=== PATIENT | male | born 2000 ===

== ENCOUNTER 2018-10-14 01:03 | Emergency (ER) | payer MEDICAID, OTHER ==
--- NOTE | 2018-10-14 03:18 | ED PDOC ---
HPI: General Adult Time Seen by Provider: 10/14/18 02:51 Chief Complaint (Nursing): Lower Extremity Problem/Injury Chief Complaint (Provider): tired History Per: Patient Additional Complaint(s): 18 y/o male brought in by EMS for evaluation. Patient is nondomiciled, states he is tired and his feet work from doing a lot of walking. Patient denies acute physical or psychiatric complaints. Requesting to sleep for a little. Past Medical History Reviewed: Historical Data, Nursing Documentation, Vital Signs Vital Signs: Last Vital Signs Temp 98.0 F 10/14/18 01:10 Pulse 80 10/14/18 01:10 Resp 18 10/14/18 01:10 BP 130/82 10/14/18 01:10 Pulse Ox 95 10/14/18 01:10 - Medical History PMH: No Chronic Diseases - Surgical History Surgical History: No Surg Hx - Family History Family History: States: No Known Family Hx - Home Medications Home Medications: Ambulatory Orders Medication Instructions Recorded No Known Home Med 10/14/18 - Allergies Allergies/Adverse Reactions: Allergies Allergy/AdvReac Type Severity Reaction Status Date / Time No Known Allergies Allergy Verified 10/14/18 08:27 Review of Systems ROS Statement: Except As Marked, All Systems Reviewed And Found Negative Physical Exam - Reviewed Nursing Documentation Reviewed: Yes Vital Signs Reviewed: Yes - Physical Exam Appears: Positive for: Well, Non-toxic, No Acute Distress Head Exam: Positive for: ATRAUMATIC, NORMAL INSPECTION, NORMOCEPHALIC Skin: Positive for: Normal Color Eye Exam: Positive for: Normal appearance ENT: Positive for: Normal ENT Inspection Cardiovascular/Chest: Positive for: Regular Rate, Rhythm Respiratory: Positive for: Normal Breath Sounds Gastrointestinal/Abdominal: Positive for: Normal Exam Back: Positive for: Normal Inspection Extremity: Positive for: Normal ROM Neurologic/Psych: Positive for: Alert, Oriented (x3) - ECG O2 Sat by Pulse Oximetry: 95 - Progress ED Course And Treament: Patient requires no further intervention in the ED and is stable for discharge at this time Disposition - Clinical Impression Clinical Impression: Malingering - Patient ED Disposition Is Patient to be Admitted: No - Disposition Disposition: Routine/Home Disposition Time: 03:21 Condition: IMPROVED
[2018-10-14 06:50] VITALS: BP 141/63; PULSE 63; RESP 16; TEMP 98
[2018-10-14 21:19] VITALS: O2SAT 95
== END 2018-10-14 05:45 | disposition home or self-care (01) ==
LOC: H.ER 01:03
DX: Z76.5 Malingerer [conscious simulation] (principal)

== ENCOUNTER 2018-10-31 15:22 | Emergency (ER) | payer MEDICAID, OTHER ==
[2018-10-31 15:30] VITALS: BP 132/71; PULSE 88; RESP 20; TEMP 98.5; O2SAT 100
--- NOTE | 2018-10-31 15:56 | ED PDOC ---
HPI: Wound Care - HPI Time Seen by Provider: 10/31/18 15:28 Chief Complaint (Nursing): Suture/Staple Removal Chief Complaint (Provider): Suture/Staple Removal History Per: Patient Exam Limitations: no limitations Onset/Duration Of Symptoms: Days (x7) Current Symptoms Are (Timing): Still Present Quality Of Symptoms: Painful Additional Complaint(s): 18 year old male arrives to ED via EMS for suture removal of the right hand placed on 10/24/18 at [facility]. Patient states he missed his appointment to remove sutures this morning but informed that he may go to any hospital for removal, thus, prompting ED visit. He reports the laceration was sustained after breaking a window with his fist 1 week ago. Otherwise, he denies any fever, chills, or recent ABX use. Tetanus vaccine is UTD. PCP: none provided Past Medical History Reviewed: Historical Data, Nursing Documentation, Vital Signs Vital Signs: Last Vital Signs Temp 98.5 F 10/31/18 15:27 Pulse 88 10/31/18 15:27 Resp 20 10/31/18 15:27 BP 132/71 10/31/18 15:27 Pulse Ox 100 10/31/18 15:27 - Medical History PMH: No Chronic Diseases Denies: Diabetes, Hepatitis, HIV, HTN, Chronic Kidney Disease, Seizures, Sexually Transmitted Disease - Family History Family History: States: Unknown Family Hx - Immunization History Hx Tetanus Toxoid Vaccination: No Hx Influenza Vaccination: No Hx Pneumococcal Vaccination: No - Home Medications Home Medications: Ambulatory Orders Medication Instructions Recorded Cephalexin [cephalexin] 500 mg PO Q6 #28 cap 11/01/18 - Allergies Allergies/Adverse Reactions: Allergies Allergy/AdvReac Type Severity Reaction Status Date / Time No Known Allergies Allergy Verified 10/31/18 20:52 Review of Systems ROS Statement: Except As Marked, All Systems Reviewed And Found Negative Constitutional: Negative for: Fever, Chills Musculoskeletal: Positive for: Hand Pain (right-sided with stitches in place). Negative for: Other (discharge or bleeding of wound) Physical Exam - Reviewed Nursing Documentation Reviewed: Yes Vital Signs Reviewed: Yes - Physical Exam Appears: Positive for: Well, Non-toxic, No Acute Distress Head Exam: Positive for: ATRAUMATIC, NORMAL INSPECTION, NORMOCEPHALIC Skin: Positive for: Warm, Dry Eye Exam: Positive for: Normal appearance, EOMI, PERRL Cardiovascular/Chest: Positive for: Regular Rate, Rhythm Respiratory: Positive for: Normal Breath Sounds Pulses-Radial (L): 2+ Pulses-Radial (R): 2+ Extremity: Positive for: Normal ROM, Tenderness (right thenar eminence), Capillary Refill (<2s), Swelling (right thenar eminence), Other (3cm laceration to right thenar eminence, 6 sutures intact. Mild gaping noted with scabbing between sutures. Surrounding erythema and warmth suggestive of cellutlitis. No drainage, no fluctuance, no streaking.). Negative for: Deformity Neurologic/Psych: Positive for: Alert, Oriented, Gait (steady without assistance) - ECG O2 Sat by Pulse Oximetry: 100 (RA) Pulse Ox Interpretation: Normal Medical Decision Making Medical Decision Making: Time: 1534 Initial Plan: * Motrin 600mg PO * XR hand (right) Time: 161 --Patient refuses further treatment at this time and requests to leave against medical advice as he wishes to return to homeless [facility] by 1700 tonight. Denying any further intervention, including suture removal, XR, or antibiotics. The provider has personally explained to the patient that choosing to do so may result in permanent bodily harm, wound infection, or . The provider discussed at great length that without further evaluation and monitoring there may be unforeseen circumstances and/or deterioration causing permanent bodily harm or as a result of their choice. The patient verbalized these risks b ack to the physician in laymans terms. The patient is alert, oriented, and shows the mental capacity to make clear decisions regarding the his health care at this time. The patient continues to wish to leave against medical advice. In light of the patients decision to leave AMA, follow-up has been arranged and the patient is aware of the importance of following up as instructed. The patient has been advised that they should return to the ED immediately if they change their mind at any time, or if their condition begins to change or worsen in any way. Scribe Attestation: Documented by Julissa Fletcher, acting as a scribe for Amber Prescott PA-C. Provider Scribe Attestation: All medical record entries made by the Scribe were at my direction and personally dictated by me. I have reviewed the chart and agree that the record accurately reflects my personal performance of the history, physical exam, medical decision making, and the department course for this patient. I have also personally directed, reviewed, and agree with the discharge instructions and disposition. Disposition - Clinical Impression Clinical Impression: Left against medical advice - Disposition Referrals: Duke Hill MD [Medical Doctor] - Disposition: Against Medical Advice Disposition Time: 16:15 Condition: FAIR Additional Instructions: Keep wound clean, dry, covered Return to ER for any new/worsening symptoms or if you wish to be re-evaluated Instructions: Wound Care (DC), Leaving Against Medical Advice Forms: [employer] (Yakut), [facility] School/Work Excuse
== END 2018-10-31 16:35 | disposition left against medical advice (07) ==
LOC: H.ER 15:22
DX: Z48.02 Encounter for removal of sutures (principal)

== ENCOUNTER 2018-10-31 20:45 | Emergency (ER) | payer MEDICAID, OTHER ==
[2018-10-31 20:56] VITALS: TEMP 98.1
[2018-10-31 22:18] VITALS: BP 103/68; PULSE 80; RESP 18; O2SAT 98
--- NOTE | 2018-11-01 00:03 | ED PDOC ---
HPI: General Adult Time Seen by Provider: 10/31/18 21:08 Chief Complaint (Nursing): GI Problem History Per: Patient Additional Complaint(s): Pt. states earlier today he got into a verbal altercation with [facility] people at the [facility]. States this triggered a panic attack causing him to feel nauseous but had no vomiting. Pt. states he does have a hx of anxiety. Also states 7 days ago he had sutures placed on his R hand. Denies SI/HI, hallucinations, abdominal pain, vomiting, chest pain, SOB, fever, discharge. Past Medical History Reviewed: Historical Data, Nursing Documentation, Vital Signs Vital Signs: Last Vital Signs Temp 98.1 F 10/31/18 20:52 Pulse 80 10/31/18 22:18 Resp 18 10/31/18 22:18 BP 103/68 10/31/18 22:18 Pulse Ox 98 10/31/18 22:18 - Medical History PMH: Anxiety Denies: Diabetes, Hepatitis, HIV, HTN, Chronic Kidney Disease, Seizures, Sexually Transmitted Disease - Surgical History Surgical History: No Surg Hx - Family History Family History: States: No Known Family Hx - Immunization History Hx Tetanus Toxoid Vaccination: No Hx Influenza Vaccination: No Hx Pneumococcal Vaccination: No - Home Medications Home Medications: Ambulatory Orders Medication Instructions Recorded Cephalexin [cephalexin] 500 mg PO Q6 #28 cap 11/01/18 - Allergies Allergies/Adverse Reactions: Allergies Allergy/AdvReac Type Severity Reaction Status Date / Time No Known Allergies Allergy Verified 10/31/18 20:52 Review of Systems ROS Statement: Except As Marked, All Systems Reviewed And Found Negative Physical Exam - Reviewed Nursing Documentation Reviewed: Yes Vital Signs Reviewed: Yes - Physical Exam Appears: Positive for: Well, Non-toxic, No Acute Distress Head Exam: Positive for: ATRAUMATIC, NORMAL INSPECTION, NORMOCEPHALIC Skin: Positive for: Normal Color, Warm. Negative for: Rash Eye Exam: Positive for: EOMI, Normal appearance, PERRL ENT: Positive for: Normal ENT Inspection Neck: Positive for: Normal, Painless ROM Cardiovascular/Chest: Positive for: Regular Rate, Rhythm Respiratory: Positive for: CNT, Normal Breath Sounds Pulses-Radial (L): 2+ Pulses-Radial (R): 2+ Gastrointestinal/Abdominal: Positive for: Normal Exam, Soft. Negative for: Tenderness Back: Positive for: Normal Inspection Extremity: Positive for: Normal ROM, Other (R thenar eminence with sutures in place with some dehisence and surrounding erythema but no swelling, fluctuance, or discharge) Neurologic/Psych: Positive for: Alert, Oriented (x3), Mood/Affect (angry but cooperative), Gait (steady, unassisted) - ECG O2 Sat by Pulse Oximetry: 98 - Progress ED Course And Treament: Keflex 500mg PO ordered. Pt. evaluated by Mihir MCKEON who spoke with Erika BUTTER PRODUCTION SUPERVISOR (under Dr. Roman) and cleared pt. for discharge. Advised to return to ED or go to PMD in 2-3 days for wound check. Disposition - Clinical Impression Clinical Impression: Cellulitis, Adjustment disorder - Patient ED Disposition Is Patient to be Admitted: No - Disposition Referrals: [facility] [Outside] Disposition: Routine/Home Disposition Time: 00:04 Condition: STABLE Additional Instructions: GUY BOWMAN, thank you for letting us take care of you today. Your provider was Lizeth Brasher MD and you were treated for VOMITING. The emergency medical care you received today was directed at your acute symptoms. If you were prescribed any medication, please fill it and take as directed. It may take several days for your symptoms to resolve. Return to the Emergency Department if your symptoms worsen, do not improve, or if you have any other problems. Please contact your doctor or call one of the physicians/clinics you have been referred to that are listed on the Patient Visit Information form that is included in your discharge packet. Bring any paperwork you were given at discharge with you along with any medications you are taking to your follow up visit. Our treatment cannot replace ongoing medical care by a primary care provider outside of the emergency department. Thank you for allowing the [facility] team to be part of your care today. If you had an X-Ray or CT scan: A Radiologist will review the ED reading if any change in treatment is needed we will contact you. If you had a blood, urine, or wound culture: It will take several days for the results, if any change in treatment is needed we will contact you. If you had an STI test: It will take 48 hours for the results. Please call after 1 week if you have not heard back. Prescriptions: Cephalexin [cephalexin] 500 mg PO Q6 #28 cap Instructions: Adjustment Disorder, Cellulitis (Skin Infection), Adult (DC) Forms: [facility] (Kazakh) Print Language: TAJIK
== END 2018-11-01 00:32 | disposition home or self-care (01) ==
LOC: H.ER 20:45
DX: F43.20 Adjustment disorder, unspecified (principal); F41.0 Panic disorder [episodic paroxysmal anxiety]; L03.90 Cellulitis, unspecified

== ENCOUNTER 2018-11-01 07:03 | Emergency (ER) | payer MEDICAID, OTHER ==
[2018-11-01 07:16] VITALS: O2SAT 98; BMI 35.9
--- NOTE | 2018-11-01 09:09 | ED PDOC ---
HPI: Psych/Substance Abuse Time Seen by Provider: 11/01/18 07:25 Chief Complaint (Nursing): Psychiatric Evaluation Chief Complaint (Provider): Psychiatric Evaluation History Per: Patient History/Exam Limitations: no limitations Onset/Duration Of Symptoms: Hrs Current Symptoms Are (Timing): Still Present Suicide/Self Injury Attempted (Context): None Modifying Factor(s): None Associated Symptoms: Anxiety Involuntary Hold By: None Additional Complaint(s): 18 y/o homeless male with a PMHx of Anxiety brought in by EMS for psychiatric evaluation. Patient states he does not know why he's here but further states [facility]. Patient is unwilling to say why he feels unsafe. Patient additionally reports of feeling depressed. However, patient denies any suicidal or homicidal ideation. Patient states he should be taking anxiety medications but is unable to because he does not have insurance. Of note, patient has sutures to the right hand. Patient is reluctant to share more information. However, patient reports he will be getting the sutures removed on Saturday. In addition, patient was seen and evaluated in this ER last night for similar symptoms. Patient was medically and psychiatrically cleared and discharged home at 12 AM last night. No drugs or etoh. PMD: none Past Medical History Reviewed: Historical Data, Nursing Documentation, Vital Signs Vital Signs: Last Vital Signs Temp 97 F L 11/01/18 07:15 Pulse 77 11/01/18 07:15 Resp 20 11/01/18 07:21 BP 143/75 11/01/18 07:15 Pulse Ox 98 11/01/18 07:15 - Medical History PMH: Anxiety, Depression Denies: Diabetes, Hepatitis, HIV, HTN, Chronic Kidney Disease, Seizures, Sexually Transmitted Disease - Surgical History Surgical History: No Surg Hx - Family History Family History: States: Unknown Family Hx - Living Arrangements Living Arrangements: Other (Homeless Halfway) - Immunization History Hx Tetanus Toxoid Vaccination: No Hx Influenza Vaccination: No Hx Pneumococcal Vaccination: No - Home Medications Home Medications: Ambulatory Orders Medication Instructions Recorded Cephalexin [cephalexin] 500 mg PO Q6 #28 cap 11/01/18 - Allergies Allergies/Adverse Reactions: Allergies Allergy/AdvReac Type Severity Reaction Status Date / Time No Known Allergies Allergy Verified 11/01/18 07:18 Review of Systems ROS Statement: Except As Marked, All Systems Reviewed And Found Negative Psych: Positive for: Depression, Other (Psychiatric evaluation). Negative for: Suicidal ideation (or homicidal ideation) Physical Exam - Reviewed Nursing Documentation Reviewed: Yes Vital Signs Reviewed: Yes - Physical Exam Appears: Positive for: No Acute Distress Head Exam: Positive for: ATRAUMATIC, NORMOCEPHALIC Skin: Positive for: Normal Color, Warm, Dry Eye Exam: Positive for: Normal appearance, EOMI, PERRL Neck: Positive for: Normal Cardiovascular/Chest: Positive for: Regular Rate, Rhythm. Negative for: Murmur Respiratory: Positive for: Normal Breath Sounds. Negative for: Respiratory Distress Gastrointestinal/Abdominal: Positive for: Normal Exam, Soft. Negative for: Tenderness Back: Positive for: Normal Inspection. Negative for: L CVA Tenderness, R CVA Tenderness Extremity: Positive for: Normal ROM, Other (Right hand laceration sutured noted on the right thenar eminence) Neurologic/Psych: Positive for: Alert, Oriented. Negative for: Motor/Sensory Deficits - ECG O2 Sat by Pulse Oximetry: 98 (RA) Pulse Ox Interpretation: Normal Medical Decision Making Medical Decision Making: Scribe Attestation: Documented by Ila Edwards, acting as a scribe for Deven Armstrong MD. Provider Scribe Attestation: All medical record entries made by the Scribe were at my direction and personally dictated by me. I have reviewed the chart and agree that the record accurately reflects my personal performance of the history, physical exam, medical decision making, and the department course for this patient. I have also personally directed, reviewed, and agree with the discharge instructions and disposition. 832: Stable. Has no pain or suicidal/homicidal ideation. Is calling a friend and leaving ER with him. Ambulated with no issues. AAOx3. Tolerated po. Disposition - Clinical Impression Clinical Impression: Homelessness - Patient ED Disposition Is Patient to be Admitted: No - Disposition Referrals: [facility] [Outside] - 11/03/18 Disposition Time: 07:45 Condition: STABLE Additional Instructions: Return if not better in 3 days. Instructions: Tips for Getting Better Sleep
[2018-11-01 09:38] VITALS: BP 137/74; PULSE 73; RESP 19; TEMP 98.3
== END 2018-11-01 09:30 | disposition home or self-care (01) ==
LOC: H.ER 07:03
DX: Z59.0 Homelessness (principal); Z86.59 Personal history of other mental and behavioral disorders

== ENCOUNTER 2018-11-02 11:27 | Emergency (ER) | payer OTHER ==
[2018-11-02 11:27] VITALS: BMI 35.9
--- NOTE | 2018-11-02 12:09 | ED PDOC ---
HPI: Psych/Substance Abuse Time Seen by Provider: 11/02/18 12:06 Chief Complaint (Nursing): Psychiatric Evaluation Chief Complaint (Provider): Psychiatric Screening History Per: Patient History/Exam Limitations: no limitations Onset/Duration Of Symptoms: Days (>365) Current Symptoms Are (Timing): Still Present Suicide/Self Injury Attempted (Context): None Modifying Factor(s): None Severity: Mild Associated Symptoms: Anxiety, Depression. denies: Suicidal Thoughts, Suicidal Plan Involuntary Hold By: None (Pt presents to the ED for the second time in two days seeking housing referral services; the patient was seen less than 24 hours ago and given a list of housing referral services and returns today claiming subjective depression and need for housing) Past Medical History Vital Signs: Last Vital Signs Temp 97 F L 11/02/18 11:32 Pulse 81 11/02/18 11:32 Resp BP 117/61 11/02/18 11:32 Pulse Ox 98 11/02/18 11:32 - Medical History PMH: Anxiety, Depression Denies: Diabetes, Hepatitis, HIV, HTN, Chronic Kidney Disease, Seizures, Sexually Transmitted Disease - Family History Family History: States: Unknown Family Hx - Immunization History Hx Tetanus Toxoid Vaccination: No Hx Influenza Vaccination: No Hx Pneumococcal Vaccination: No - Home Medications Home Medications: Ambulatory Orders Medication Instructions Recorded RX: No Known Home Med 11/01/18 - Allergies Allergies/Adverse Reactions: Allergies Allergy/AdvReac Type Severity Reaction Status Date / Time No Known Allergies Allergy Verified 11/01/18 07:18 Review of Systems ROS Statement: Except As Marked, All Systems Reviewed And Found Negative Psych: Positive for: Anxiety, Depression Physical Exam - Reviewed Nursing Documentation Reviewed: Yes Vital Signs Reviewed: Yes - Physical Exam Appears: Positive for: Well, Non-toxic Head Exam: Positive for: ATRAUMATIC, NORMAL INSPECTION, NORMOCEPHALIC Skin: Positive for: Normal Color, Warm, Dry Eye Exam: Positive for: Normal appearance, EOMI, PERRL ENT: Positive for: Normal ENT Inspection Neck: Positive for: Normal, Painless ROM, Supple. Negative for: Decreased ROM Cardiovascular/Chest: Positive for: Regular Rate, Rhythm, Chest Non Tender. Negative for: Edema, Gallop, Murmur, Bradycardia, Tachycardia Respiratory: Positive for: Normal Breath Sounds. Negative for: Decreased Breath Sounds, Accessory Muscle Use, Crackles, Rales, Rhonchi, Stridor, Wheezing Pulses-Carotid (L): 2+ Pulses-Carotid (R): 2+ Pulses-Radial (L): 2+ Pulses-Radial (R): 2+ - ECG O2 Sat by Pulse Oximetry: 98 Medical Decision Making Medical Decision Making: Referred to crisis and discharged with similar instructions for follow up given yesterday; Dr Kaplan Adjustment Disorder Disposition - Clinical Impression Clinical Impression: Adjustment disorder - Patient ED Disposition Is Patient to be Admitted: No Discussed With Dr.: Anabel Elder Doctor Will See Patient In The: Office Counseled Patient/Family Regarding: Studies Performed, Diagnosis, Need For Followup - Disposition Disposition: Routine/Home Disposition Time: 16:00 Condition: STABLE Additional Instructions: follow up as indicated yesterday Forms: [employer] (Turkmen)
[2018-11-02 13:41] VITALS: BP 121/73; PULSE 79; RESP 16; TEMP 97.2
[2018-11-02 17:31] VITALS: O2SAT 98
== END 2018-11-02 13:41 | disposition home or self-care (01) ==
LOC: H.ER 11:27
DX: F43.22 Adjustment disorder with anxiety (principal)

== ENCOUNTER 2018-11-08 20:45 | Emergency (ER) | payer OTHER ==
[2018-11-08 20:58] VITALS: O2SAT 97
--- NOTE | 2018-11-08 22:35 | ED PDOC ---
HPI: Chest Pain Time Seen by Provider: 11/08/18 21:15 Chief Complaint (Nursing): Abdominal Pain Chief Complaint (Provider): Chest Pain History Per: Patient History/Exam Limitations: no limitations Current Symptoms Are (Timing): Still Present Quality: "Pain" Associated Symptoms: denies: Diaphoresis Additional Complaint(s): 18 year old undomiciled male with a history of autism and ADHD presents to the ED with non radiating chest pain located in the center of chest. Patient reports also feeling depressed lately. He ran out of his medications and since he has no Medicare at this time is unable to see a doctor or get refills. Patient typically lives in longterm but there are no beds available tonight. Denies sweats, nausea and vomiting. Offers no other medical complaints. PMD: none provided Past Medical History Reviewed: Historical Data, Nursing Documentation, Vital Signs Vital Signs: Last Vital Signs Temp 97.6 F 11/08/18 20:56 Pulse 104 H 11/08/18 20:56 Resp 20 11/08/18 20:56 BP 123/74 11/08/18 20:56 Pulse Ox 97 11/08/18 20:56 - Medical History PMH: Anxiety, Depression - Surgical History Surgical History: No Surg Hx - Family History Family History: States: Unknown Family Hx - Allergies Allergies/Adverse Reactions: Allergies Allergy/AdvReac Type Severity Reaction Status Date / Time No Known Allergies Allergy Verified 11/08/18 20:58 Review of Systems ROS Statement: Except As Marked, All Systems Reviewed And Found Negative Cardiovascular: Positive for: Chest Pain Psych: Positive for: Depression Physical Exam - Reviewed Nursing Documentation Reviewed: Yes Vital Signs Reviewed: Yes - Physical Exam Appears: Positive for: No Acute Distress (malodorous and disheveled) Head Exam: Positive for: ATRAUMATIC, NORMAL INSPECTION, NORMOCEPHALIC Skin: Positive for: Normal Color, Warm, Dry Eye Exam: Positive for: EOMI, Normal appearance, PERRL Neck: Positive for: Normal, Painless ROM, Supple Cardiovascular/Chest: Positive for: Regular Rate, Rhythm, Chest Non Tender. Negative for: Murmur Respiratory: Positive for: Normal Breath Sounds. Negative for: Respiratory Distress Gastrointestinal/Abdominal: Positive for: Normal Exam, Soft. Negative for: Tenderness Extremity: Positive for: Normal ROM. Negative for: Deformity Neurologic/Psych: Positive for: Alert, Oriented. Negative for: Motor/Sensory Deficits - Laboratory Results Result Diagrams: 11/08/18 22:42 11/08/18 22:42 - ECG O2 Sat by Pulse Oximetry: 97 (RA) Pulse Ox Interpretation: Normal Medical Decision Making Medical Decision Makin:50 MDM: workup for chest pain; low suspicion for cardiac etiology Crisis evaluation Reassess Most likely discharge home. 2345 Pt with normal labs and workup. Vitals WNL and EKG NSR. HEART score 0. Crisis team evaluated the patient and determined there was no need for admission per Dr. Roman with a diagnosis of Adjustment Disorder/Depression. Pt given referral information for outpatient follow up and psychiatric services. Scribe Attestation: Documented by Marleny Richardson acting as a scribe for Chandni Orellana MD Provider Scribe Attestation: All medical record entries made by the Scribe were at my direction and personally dictated by me. I have reviewed the chart and agree that the record accurately reflects my personal performance of the history, physical exam, medical decision making, and the department course for this patient. I have also personally directed, reviewed, and agree with the discharge instructions and disposition. Disposition - Clinical Impression Clinical Impression: Chest pain - Patient ED Disposition Is Patient to be Admitted: No - Disposition Referrals: [facility] [Outside] Disposition: Routine/Home Disposition Time: 23:55 Condition: STABLE Forms: [employer] (Cook Islander) Print Language: WELSH
[2018-11-08 22:48] LABS: BASO # 0.1 K/uL (0.0-0.2); EOS # 0.1 K/uL (0.0-0.7); HEMOGLOBIN 14.4 g/dL (12.0-18.0); LYMPH % 18.1 % (20.0-40.0); MEAN CELL VOLUME 84.9 fl (80.0-94.0); MEAN CORPUSCULAR HEMOGLOBIN 28.9 pg (27.0-31.0); MEAN PLATELET VOLUME 7.6 fl (7.2-11.7); MONO % 9.2 % (0.0-10.0); NEUT # 7.8 K/uL (1.8-7.0); NEUT % 70.7 % (50.0-75.0); NRBC % 0.1 % (0.0-0.0); RBC 4.97 Mil/uL (4.40-5.90); RED CELL DISTRIBUTION WIDTH 13.7 % (11.5-14.5)
[2018-11-08 22:58] LABS: BLOOD UREA NITROGEN 15 mg/dl (9-20); CALCIUM 9.3 mg/dL (8.4-10.2); GFR NON-AFRICAN AMERICAN > 60
[2018-11-09 02:01] VITALS: BP 104/61; PULSE 75; RESP 18; TEMP 98.6
--- NOTE | 2018-11-09 09:45 | RAD ---
Date of service: 11/08/2018 HISTORY: possible admission COMPARISON: No prior. FINDINGS: LUNGS: No active pulmonary disease. PLEURA: No significant pleural effusion identified, no pneumothorax apparent. CARDIOVASCULAR: No aortic atherosclerotic calcification present. Normal cardiac size. No pulmonary vascular congestion. OSSEOUS STRUCTURES: No significant abnormalities. VISUALIZED UPPER ABDOMEN: Normal. OTHER FINDINGS: None. IMPRESSION: No active disease.
== END 2018-11-09 00:10 | disposition home or self-care (01) ==
LOC: H.ER 20:45 → MERGE 20:45 → EDBD 20:45 → H.ER 11-09 00:10
DX: F32.9 Major depressive disorder, single episode, unspecified (principal); R07.9 Chest pain, unspecified; Z86.59 Personal history of other mental and behavioral disorders

== ENCOUNTER 2018-11-14 19:07 | Emergency (ER) | payer MEDICAID, OTHER ==
[2018-11-14 19:07] VITALS: BMI 35.9
[2018-11-14 19:12] VITALS: BP 115/61; PULSE 88; RESP 16; TEMP 98; O2SAT 98
--- NOTE | 2018-11-14 19:47 | ED PDOC ---
HPI: Abdomen Time Seen by Provider: 11/14/18 19:17 Chief Complaint (Nursing): Abdominal Pain History Per: Patient Onset/Duration Of Symptoms: Mins (30) Severity: Moderate Location Of Pain/Discomfort: RLQ, LLQ Quality Of Discomfort: Unable To Describe Associated Symptoms: denies: Fever, Nausea, Vomiting, Diarrhea, Urinary Symptoms Exacerbating Factors: None Alleviating Factors: None Additional Complaint(s): Lower abd pain x 30 min [employer] [facility]. Denies NVD. Denies urinary sxs. Unable to localize area of pain, poor historian. Past Medical History Vital Signs: Last Vital Signs Temp 98 F 11/14/18 19:09 Pulse 88 11/14/18 19:09 Resp 16 11/14/18 19:09 BP 115/61 11/14/18 19:09 Pulse Ox 98 11/14/18 19:09 - Medical History PMH: Anxiety, Depression Denies: HIV, HTN, Chronic Kidney Disease, Seizures, Sexually Transmitted Disease - Family History Family History: States: Unknown Family Hx - Immunization History Hx Tetanus Toxoid Vaccination: No Hx Influenza Vaccination: No Hx Pneumococcal Vaccination: No - Home Medications Home Medications: Ambulatory Orders Medication Instructions Recorded No Known Home Med 11/01/18 - Allergies Allergies/Adverse Reactions: Allergies Allergy/AdvReac Type Severity Reaction Status Date / Time No Known Allergies Allergy Verified 11/14/18 19:09 Review of Systems ROS Statement: Except As Marked, All Systems Reviewed And Found Negative Gastrointestinal: Positive for: Abdominal Pain Physical Exam - Reviewed Nursing Documentation Reviewed: Yes Vital Signs Reviewed: Yes - Physical Exam Appears: Positive for: Non-toxic, No Acute Distress Head Exam: Positive for: ATRAUMATIC, NORMAL INSPECTION, NORMOCEPHALIC Skin: Positive for: Normal Color, Warm, DRY Eye Exam: Positive for: EOMI, Normal appearance, PERRL ENT: Positive for: Normal ENT Inspection Neck: Positive for: Normal, Painless ROM Cardiovascular/Chest: Positive for: Regular Rate, Rhythm Respiratory: Positive for: CNT, Normal Breath Sounds Gastrointestinal/Abdominal: Positive for: Soft, Tenderness (Lower quads bilat) Back: Positive for: Normal Inspection. Negative for: L CVA Tenderness, R CVA Tenderness Extremity: Positive for: Normal ROM Neurologic/Psych: Positive for: Alert. Negative for: Motor/Sensory Deficits - Laboratory Results Result Diagrams: 12/14/18 20:14 11/14/18 20:14 - ECG O2 Sat by Pulse Oximetry: 98 Medical Decision Making Medical Decision Making: Time: 1943 Plan: -- CT Abd/Pelvis IV Contrast -- Alcohol Serum -- CMP -- Urine Drug Screen -- ED Urine Drug Screen -- CBC with Differentials CT ABD/PELVIS RESULTS FINDINGS: LUNG BASES: The lung bases appear clear. No pleural effusions are seen. LIVER: Unremarkable. GALLBLADDER AND BILE DUCTS: The gallbladder appears within normal limits. No radioopaque gallstones are seen. No biliary ductal dilatation is evident. PANCREAS: Unremarkable. SPLEEN: Unremarkable. ADRENAL GLANDS: Unremarkable. KIDNEYS, URETERS, AND BLADDER: The kidneys appear within normal limits. There is no hydronephrosis or hydro ureter. No urinary calculi are seen. STOMACH AND BOWEL: Unremarkable appearance of the stomach and bowel. No evidence of bowel obstruction. No evidence suggesting enteritis or colitis. APPENDIX: Intestinal pattern is nonobstructive. The appendix is not visualized with certainty. There are no right lower quadrant inflammatory changes. No evidence of acute diverticulitis. PERITONEUM: No free fluid. No free air. LYMPH NODES: No lymphadenopathy is evident. VASCULATURE: No evidence of abdominal aortic aneurysm. BONES: No aggressive appearing osseous lesion. No acute osseous pathology evident. IMPRESSION: Intestinal pattern is nonobstructive. The appendix is not visualized with certainty. There are no right lower quadrant inflammatory changes. No evidence of acute diverticulitis. Scribe Attestation: Documented by Ila Edwards, acting as a scribe for Los Yu MD. Provider Scribe Attestation: All medical record entries made by the Scribe were at my direction and personally dictated by me. I have reviewed the chart and agree that the record accurately reflects my personal performance of the medical decision making for this patient. I have also personally directed, reviewed, and agree with the discharge instructions and disposition. Disposition - Clinical Impression Clinical Impression: Abdominal pain, Adjustment disorder - Patient ED Disposition Is Patient to be Admitted: Transfer of Care - Disposition Disposition: Transfer of Care Disposition Time: 23:52 Condition: FAIR Forms: [employer] (Yakut) Patient Signed Over To: Kalia Payne
[2018-11-14 20:17] LABS: BASO # 0.1 K/uL (0.0-0.2); BASO % 0.6 % (0.0-2.0); EOS # 0.1 K/uL (0.0-0.7); HEMOGLOBIN 13.6 g/dL (12.0-18.0); LYMPH # 1.6 K/uL (1.0-4.3); LYMPH % 16.4 % (20.0-40.0); MEAN CELL VOLUME 84.6 fl (80.0-94.0); MEAN CORPUSCULAR HEMOGLOBIN 28.8 pg (27.0-31.0); MEAN PLATELET VOLUME 7.4 fl (7.2-11.7); MONO # 0.7 K/uL (0.0-0.8); MONO % 7.1 % (0.0-10.0); NEUT # 7.3 K/uL (1.8-7.0); NEUT % 74.9 % (50.0-75.0); RBC 4.74 Mil/uL (4.40-5.90); RED CELL DISTRIBUTION WIDTH 13.5 % (11.5-14.5); WHITE BLOOD COUNT 9.7 K/uL (4.8-10.8)
[2018-11-14 20:41] LABS: ALB/GLOB RATIO 1.1 (1.0-2.1)
[2018-11-14 20:47] LABS: ALT/SGPT 22 U/L (21-72); AST/SGOT 26 U/L (17-59); BLOOD UREA NITROGEN 13 mg/dl (9-20); CALCIUM 9.3 mg/dL (8.4-10.2); GFR NON-AFRICAN AMERICAN > 60
[2018-11-14] MEDS ORDERED: Iohexol 300 100 ML IJ ONE (21:09)
[2018-11-14] MEDS ORDERED: Sodium Chloride 0.9% 50 ML IV ONE (21:09)
--- NOTE | 2018-11-14 23:55 | ED PDOC ---
- Laboratory Results Result Diagrams: 11/14/18 20:14 11/14/18 20:14 - ECG O2 Sat by Pulse Oximetry: 98 (RA) Pulse Ox Interpretation: Normal Medical Decision Making Medical Decision Making: Time: 2354 -- Patient endorsed to me by Dr. Yu, pending crisis evaluation. Time: 28 -- Patient evaluated by crisis. Patient to be discharged home with a diagnosis of unspecified depressive disorder by Dr. Bobo -- Well appearing, tolerating PO Scribe Attestation: Documented by Ila Edwards, acting as a scribe for Kalia Panye MD. Provider Scribe Attestation: All medical record entries made by the Scribe were at my direction and personall y dictated by me. I have reviewed the chart and agree that the record accurately reflects my personal performance of the history, physical exam, medical decision making, and the department course for this patient. I have also personally directed, reviewed, and agree with the discharge instructions and disposition. Disposition Counseled Patient/Family Regarding: Studies Performed, Diagnosis - Clinical Impression Clinical Impression: Abdominal pain, Depression (emotion) - POA Present On Arrival: None - Disposition Referrals: [facility] [Outside] Disposition: Routine/Home Disposition Time: 00:29 Condition: FAIR Instructions: Depression, Stomach Ache and Stomach Upset Forms: [employer] (Taiwanese)
--- NOTE | 2018-11-15 11:21 | CT ---
Date of service: 11/14/2018 PROCEDURE: CT Abdomen and Pelvis with contrast HISTORY: Abd pain COMPARISON: None. TECHNIQUE: Contrast dose: Omnipaque 300, 95 cc Radiation dose: Total exam DLP = 955.69 mGy-cm. This CT exam was performed using one or more of the following dose reduction techniques: Automated exposure control, adjustment of the mA and/or kV according to patient size, and/or use of iterative reconstruction technique. FINDINGS: LOWER THORAX: Cardiomegaly. No pulmonary vascular congestion. No pleural effusion. LIVER: Unremarkable. No gross lesion or ductal dilatation. GALLBLADDER AND BILE DUCTS: Unremarkable. PANCREAS: Unremarkable. No gross lesion or ductal dilatation. SPLEEN: Splenomegaly is identified to 15.4 cm. No focal splenic mass appreciated. ADRENALS: Unremarkable. No mass. KIDNEYS AND URETERS: Unremarkable. No hydronephrosis. No solid mass. VASCULATURE: Unremarkable. No aortic aneurysm. No aortic atherosclerotic calcification or mural plaque present. BOWEL: Unremarkable. No obstruction. No gross mural thickening. APPENDIX: Normal appendix. PERITONEUM: Central mesenteric lymph nodes identified as well as pericecal lymph nodes in a pattern that may indicate mesenteric adenitis. Clinically correlate. LYMPH NODES: Unremarkable. No enlarged lymph nodes. BLADDER: Unremarkable. REPRODUCTIVE: Unremarkable. BONES: No acute fracture. OTHER FINDINGS: None. IMPRESSION: Potential mesenteric adenitis. Examination otherwise unremarkable. Preliminary report from [employer], 11/14/2018 10:24 p.m..
== END 2018-11-15 06:07 | disposition home or self-care (01) ==
LOC: H.ER 19:07
DX: R10.9 Unspecified abdominal pain (principal); F32.9 Major depressive disorder, single episode, unspecified; F43.22 Adjustment disorder with anxiety
CPT/HCPCS: 74177; 80053; 80320; 85025; 99282; Q9967